=== PATIENT | male | born 1940 | race Caucasian/White ===

== ENCOUNTER 2017-07-17 14:37 | Emergency (ER) | payer MEDICARE, SELFPAY ==
[2017-07-17 14:43] VITALS: BP 118/79; PULSE 105; RESP 26; TEMP 36.9; O2SAT 94; BMI 15.2
--- NOTE | 2017-07-17 14:58 | XR_ITS ---
XR chest portable Ordering Physician: Maya Danielson MD Patient Age: 77 years: Male HISTORY: ITS.REASON: COUGH , Short of breath weakness TECHNIQUE: AP portable upright chest COMPARISON :Previous chest film 01/21/2017. November 2016 FINDINGS Prominent COPD. Prominent Hyperexpansion again noted. No focal acute pneumonia. Coarsening of markings toward left base most pronounced to the left CP angle appear stable and reflects most likely chronic features. Dating back to at least November 2016. Is slightly generous right buster appears stable since 2017. Calcified hilar nodes and and large calcified mediastinal nodes reflect over elements disease. Heart normal size. IMPRESSION: ========= Advanced COPD hyperexpansion. Chronic changes, with Nothing Definitely Acute
[2017-07-17 15:18] LABS: Basophils % 0.2 % (0.1-2.0); Eosinophils # 0.1 K/mm3 (0.0-0.4); Eosinophils % 0.7 % (0.1-12.0); Hematocrit 43.8 % (42.0-52.0); Hemoglobin 14.3 g/dL (14.1-18.0); Lymphocytes # 1.1 K/mm3 (0.7-4.5); Mean Corpuscular HGB Conc 32.6 g/dL (31.8-35.4); Mean Corpuscular Hemoglobin 32.1 pg (27.0-31.2); Mean Corpuscular Volume 98.4 fl (80-94); Mean Platelet Volume 7.5 fl (7.4-10.4); Monocytes # 0.7 K/mm3 (0.1-1.0); Monocytes % 3.7 % (1.7-9.3); Neutrophils # 16.4 K/mm3 (1.8-7.8); Neutrophils % 89.3 % (37.0-80.0); Platelet Count 337 K/mm3 (142-424); Red Blood Count 4.45 M/mm3 (4.60-6.20); White Blood Count 18.3 K/mm3 (4.8-10.8)
[2017-07-17 15:21] LABS: MANUAL DIFFERENTIAL MANUAL DIFFERENTIAL (MANUAL DIFF)
[2017-07-17 15:33] LABS: Lymphocytes % 6 % (10-50); Monocytes % 7 % (2-9); Neutrophils % 86 % (42-76); Platelet Estimate Normal; RBC Morphology Normal; Total Cells Counted 100
[2017-07-17 15:36] LABS: Lactic Acid 1.3 mmol/L (0.4-2.0)
[2017-07-17 15:44] LABS: Alanine Aminotransferase 24 U/L (12-78); Albumin Level 3.5 gm/dL (3.4-5.0); Alkaline Phosphatase 88 U/L (46-116); Anion Gap 10.3 mEq/L (5-15); Aspartate Amino Transferase 17 U/L (15-37); Blood Urea Nitrogen 9 mg/dL (7-18); CKMB Relative Index 2.9 U/L (0-4.0); Calcium 8.4 mg/dL (8.5-10.1); Carbon Dioxide 30 mmol/L (21.0-32.0); Chloride 100 mmol/L (98-107); Creatine Kinase 28 U/L (39-308); Creatine Kinase MB 0.8 mg/ml (0.0-3.6); Creatinine Clearance Estimated 41 mL/min (0-300); Creatinine,Serum 0.74 mg/dL (0.70-1.30); Estimated Glomerular Filt Rate 103 ml/min (>60); GFR (African American) 125 ML/MIN (>60); Globulin 3.6 gm/dl (1.3-3.2); Glucose 138 mg/dL (74-106); Potassium 3.3 mmoL/L (3.5-5.1); Sodium 137 mmol/L (136-145); Total Protein,Serum 7.1 gm/dL (6.4-8.2); Troponin I < 0.02 ng/ml (0.00-0.06)
--- NOTE | 2017-07-17 15:52 | [facility].EDURI ---
ED Disposition Clinical Impression: Bronchitis Disposition: Home, Self-Care Condition on Discharge: Good Additional Instructions: Continue nebs; Rx Zithromax; Rx Medrol dose paolo; very close follow up with your family doctor in one to two days Prescriptions: Azithromycin [Z-Paolo 250mg Tab] 250 mg PO UD DOSE PK #6 tab methylPREDNISolone [Medrol] 4 mg PO DAILY #1 tab.ds.pk - Critical Care Critical Care Time: No Attestation: On 07/17/17, the high probability of a clinically significant, sudden or life threatening deterioration of the following system(s) required my full and direct attention, intervention and personal management. The time I documented below is in addition to time spent performing reported procedures but includes the following listed in this critical care notation. Medical Decision Making - Otis Inquiry Pt receiving controlled substance: No Vital Signs: 07/17/17 14:43 Temperature 98.5 F Temperature Source Oral Pulse Rate [Right Radial] 105 H Respiratory Rate 26 H Blood Pressure [Right Arm] 118/79 Blood Pressure Mean [Right Arm] 92 02 Sat by Pulse Oximetry 94 L Oxygen Delivery Method Nasal Cannula Oxygen Flow Rate (LPM) 2 - Lab Data Lab Results 07/17/17 15:05: WBC 18.3 H, RBC 4.45 L, Hgb 14.3, Hct 43.8, MCV 98.4 H, MCH 32.1 H, MCHC 32.6, RDW 12.0, Plt Count 337, MPV 7.5, Neut % (Auto) 89.3 H, Lymph % (Auto) 6.0 L, [place] % (Auto) 3.7, Eos % (Auto) 0.7, Baso % (Auto) 0.2, Neut # (Auto) 16.4 H, Lymph # (Auto) 1.1, [place] # (Auto) 0.7, Eos # (Auto) 0.1, Baso # (Auto) 0.0, Total Counted 100, Neutrophils % (Manual) 86 H, Band Neutrophils % 1.0, Lymphocytes % (Manual) 6 L, Monocytes % (Manual) 7, Platelet Estimate Normal, RBC Morphology Normal 07/17/17 15:05: Sodium 137, Potassium 3.3 L, Chloride 100, Carbon Dioxide 30, Anion Gap 10.3, BUN 9, Creatinine 0.74, Estimated Creat Clear 41, Estimated GFR 103, Est GFR ( Amer) 125, Glucose 138 H, Calcium 8.4 L, Total Bilirubin 1.0, AST 17, ALT 24, Alkaline Phosphatase 88, Total Creatine Kinase 28 L, CK-MB (CK-2) 0.8, CK-MB (CK-2) Rel Index 2.9, Troponin I < 0.02, Total Protein 7.1, Albumin 3.5, Globulin 3.6 H, Albumin/Globulin Ratio 1.0 L 07/17/17 15:05: Lactic Acid 1.3 Result diagrams: 07/17/17 15:05 07/17/17 15:05 Orders (Tests/Meds): ED MEDICATIONS Discontinued Medications Generic Name Dose Route Start Last Admin Trade Name Freq PRN Reason Stop Dose Admin Albuterol/Ipratropium 3 ml 07/17/17 14:55 07/17/17 14:56 Duoneb 3ml Neb IH 07/17/17 14:56 3 ml ONCE ONE Administration Methylprednisolone Sodium Succinate 125 mg 07/17/17 14:55 07/17/17 14:56 Solu-Medrol 125mg/2ml Vial IV 07/17/17 14:56 125 mg ONCE ONE Administration ORDERS Category Date Time Status Chest XR -- portable [XR chest portable] Stat Exams 07/17/17 14:58 Taken Blood Culture Stat Micro 07/17/17 14:37 Ordered Sputum Culture & Gram Stain Stat Micro 07/17/17 14:58 Ordered - Radiology Data #1 Image(s): Chest Image Reviewed: Yes I reviewed the patient's radiology results, Yes I reviewed the patient's radiology image Preliminary Findings: No Infiltrates Seen COPD pattern - Reevaluation(s) Time: 16:40 Reevaluation #1: NAD, feels better s/p nebs and steroids; sats 98 per cent on NC and is on NC at home; feels well enough to go home and requests d/c now URI/Sore Throat HPI - General Chief Complaint: Shortness of Breath/Dyspnea Stated Complaint: soa Time Seen by Provider: 07/17/17 15:30 Mode of Arrival: Ambulatory Limitations: No Limitations Description of Symptoms (Recalled from ER Triage Doc. by RN): soa and intermittent pain in right side of ribs. not associated with coughing or movement. coughing as well. symptoms for one week. - History of Present Illness HPI Narrative: Oxygen dependent COPD, wheezing the last few days, no calf pain, no chest pain, not steroid dependent; dry cough; no fever. Given nebs and steroids on a
[2017-07-17 16:54] VITALS: BP 104/75; PULSE 90; RESP 20; TEMP 36.6; O2SAT 98
== END 2017-07-17 16:54 | disposition home or self-care (01) ==
PROVIDERS: Emergency Provider Emergency Medicine; Family Provider Internal Medicine Adolescent Medicine
DX: J44.0 Chronic obstructive pulmonary disease with (acute) lower respiratory infection (principal); Z99.81 Dependence on supplemental oxygen; F17.210 Nicotine dependence, cigarettes, uncomplicated; Z96.651 Presence of right artificial knee joint
CPT/HCPCS: 71045; 80053; 82550; 82553; 83605; 84484; 85007; 85025; 87040; 96374; 99283